=== PATIENT | male | born 1960 | race Caucasian/White ===

== ENCOUNTER 2018-12-12 04:32 | Inpatient (IN) | payer MEDICAID, OTHER ==
[2018-12-12] VITALS (12 sets, daily range): BP systolic 96–135; BP diastolic 49–57; PULSE 74–92; RESP 15–22; Ht 160 cm; Wt 60.0 kg
[~2018-12-12] VITALS: Ht 160 cm; Wt 60.0 kg
[2018-12-12] MEDS ORDERED: SOD CHLORIDE 0.9% 500 ML IV STA (04:50)
[2018-12-12] MEDS ORDERED: OCTREOTIDE 500 MCG in SOD CHLORIDE 0.9% 49 ML IV STA (04:50)
[2018-12-12] MEDS ORDERED: OCTREOTIDE 50 MCG in SOD CHLORIDE 0.9% 25 ML IVPB STA (04:50)
[2018-12-12] MEDS ORDERED: CEFTRIAXONE 1 GM/50 ML (PMX) 50 ML IVPB STA (04:50)
[2018-12-12] MEDS ORDERED: PANTOPRAZOLE IV 80 MG in SOD CHLORIDE 0.9% 100 ML IVPB STA (04:50)
[2018-12-12] MEDS ORDERED: PANTOPRAZOLE IV 80 MG in SOD CHLORIDE 0.9% 100 ML IV STA (04:50)
[2018-12-12] MEDS ORDERED: ONDANSETRON 4 MG INJ IV PRN ×2 (05:30→12:30)
[2018-12-12] MEDS ORDERED: ACETAMINOPHEN 325 MG TAB PO PRN (05:30)
[2018-12-12] MEDS ORDERED: PANTOPRAZOLE IV 80 MG in SOD CHLORIDE 0.9% 100 ML IV SCH (05:30)
[2018-12-12] MEDS ORDERED: PHYTONADIONE 10 MG in DEXTROSE 5% 50 ML IVPB ONE (05:30)
[2018-12-12] MEDS ORDERED: LOSA50TA14 ORAL (07:04)
[2018-12-12] MEDS ORDERED: ERGO500013 ORAL (07:04)
--- NOTE | 2018-12-12 07:32 | HP ---
Date/Time of Note Date/Time of Note DATE: 12/12/18 TIME: 07:31 Assessment/Plan VTE Prophylaxis SCD applied (from Nsg): Yes Pharmacological prophylaxis: NA/contraindicated Pharm contraindication: low risk/ambulating Lines/Catheters IV Catheter Type (from Nrsg): Saline Lock Assessment/Plan Hospital Course This is a 58-year-old male being admitted to the telemetry floor for: #1 acute GI bleed: Likely secondary to underlying liver disease. Hematemesis, he also reports melena. We will put the patient on Protonix drip, Sandostatin drip. He has been ordered 1 unit of PRBC in the emergency department. I will also order vitamin K given his coagulopathy along with fresh frozen plasma and 2 units of platelets, 2 units ffp, and vitamin K. We will insert an NG tube. Keep the patient n.p.o. except meds will consult GI for likely endoscopy/colonoscopy. #2 hepatitis versus cirrhosis: Patient has a history of liver disease but he does not know what exact diagnosis. Patient does have transaminitis with hyperbilirubinemia. Will obtain right upper quadrant ultrasound. CT then pelvis is pending. Will check hepatitis panel. Consult GI #3 history of heavy alcohol use: Patient reports sobriety over the last year. Will check an ethanol level. #4 Normocytic anemia: Secondary to underlying GI bleed. Will check iron stores. CBC every 6 hours. 1 unit PRBC has been ordered. #5 supratherapeutic INR with coagulopathy: Secondary likely to underlying liver disease secondary to previous alcohol use. Will order vitamin K. Daily INR, 2 units ffp #6 leukocytosis: Likely reactive. No signs of infection. Will monitor closely for any signs of fevers/infection. #7 thrombocytopenia: Likely secondary to underlying liver disease. Will check right upper quadrant ultrasound, hepatitis panel. Will transfuse 2 units of platelets. #8 metabolic acidosis: Likely secondary to acute GI bleed, anemia. Monitor closely. #9 DVT GI prophylaxis: SCDs, Protonix drip Further treatment strategy will be implemented as per the clinical course. Result Diagram: 12/12/18 0450 12/12/18 0456 Results 24hrs Laboratory Tests Test 12/12/18 04:50 12/12/18 04:56 White Blood Count 19.2 H Red Blood Count 2.24 L Hemoglobin 7.3 L Hematocrit 21.8 L Mean Corpuscular Volume 97.3 Mean Corpuscular Hemoglobin 32.6 Mean Corpuscular Hemoglobin Concent 33.5 Red Cell Distribution Width 17.2 H Platelet Count 73 L Mean Platelet Volume 12.6 H Immature Granulocytes % 1.000 H Neutrophils % 64.1 Lymphocytes % 24.4 Monocytes % 9.5 Eosinophils % 0.6 Basophils % 0.4 Nucleated Red Blood Cells % 0.0 Immature Granulocytes # 0.200 H Neutrophils # 12.3 H Lymphocytes # 4.7 H Monocytes # 1.8 H Eosinophils # 0.1 Basophils # 0.1 Nucleated Red Blood Cells # 0.0 Ethyl Alcohol Level < 10.0 H Hepatitis B Surface Antigen Pending Hepatitis B Core Total Antibody Pending Hepatitis C Antibody Pending Prothrombin Time 27.2 H Prothrombin Time Ratio 2.1 INR International Normalized Ratio 2.52 Activated Partial Thromboplast Time 43.8 H Sodium Level 144 Potassium Level 3.3 L Chloride Level 113 H Carbon Dioxide Level 18 L Anion Gap 13 Blood Urea Nitrogen 25 H Creatinine 0.89 Est Glomerular Filtrat Rate mL/min > 60 Glucose Level 124 Calcium Level 8.4 Total Bilirubin 4.5 H Direct Bilirubin 0.00 Indirect Bilirubin 4.5 H Aspartate Amino Transf (AST/SGOT) 55 H Alanine Aminotransferase (ALT/SGPT) 40 Alkaline Phosphatase 85 Troponin I 0.072 Total Protein 5.8 L Albumin 2.7 L Globulin 3.10 Albumin/Globulin Ratio 0.87 HPI/ROS Admit Date/Time Admit Date/Time Hx of Present Illness Complaint: Hematemesis x1 day, melena This is a 58-year-old male with a past history of heavy alcohol use who presents to the emergency department with bright red blood hematemesis as well as melena. Patient reports that he started having bright red blood vomiting as well as melena yesterday. He had multiple episodes of vomiting of bright red blood. He also reports that his told him that his skin looked yellow and eyes look yellow as well. He denies any recent history of alcohol use he states the last time he used it was one year ago. Allergies: NKDA Medications: Losartan ROS Const: As per HPI Eyes : No pain discharge or redness or change in visual acuity ENT: No pain, sore throat, congestion, congestion, dysphagia or discharge Respiratory: No shortness of breath, cough, sputum, wheezing, or pleuritic pain Cardiovascular: No chest pain, palpitation, PND, or edema GI : As per HPI Genitourinary: No dysuria, hematuria, flank pain , discharge or CVA tenderness Musculoskeletal: No joint pain, back pain, neck pain, restricted range of motion in neck or joints Skin: No rash, bruising or hives Neuro: No headache, dizziness, syncope, seizure, focal weakness Endocrine: No polyuria, polydipsia, temperature intolerance Psych: No hallucination, depression, anxiety or suicidal ideation PMH/Family/Social Past Medical History History of heavy alcohol use sober for 1 year, hypertension, liver disease Medications Current Medications Pantoprazole 80 mg/Sodium Chloride 100 ml @ 10 mls/hr ONCE STAT IV Last administered on 12/12/18at 06:11; Admin Dose 10 MLS/HR; Start 12/12/18 at 04:50; Stop 12/12/18 at 14:49 Octreotide Acetate 500 mcg/ Sodium Chloride 50 ml @ 5 mls/hr ONCE STAT IV Last administered on 12/12/18at 06:12; Admin Dose 5 MLS/HR; Start 12/12/18 at 04:50; Stop 12/12/18 at 14:49 Ondansetron HCl (Zofran Inj) 4 mg ER BRIDGE PRN IV NAUSEA/VOMITING Last administered on 12/12/18at 06:02; Admin Dose 4 MG; Start 12/12/18 at 05:30; Stop 12/13/18 at 05:29 Acetaminophen (Tylenol Tab) 650 mg ER BRIDGE PRN PO .MILD PAIN 1-3 OR TEMP; Start 12/12/18 at 05:30; Stop 12/13/18 at 05:29 Pantoprazole 80 mg/Sodium Chloride 100 ml @ 10 mls/hr Q10H IV ; Start 12/12/18 at 05:30 Octreotide Acetate 1 mg/ Dextrose 100 ml @ 5 mls/hr Q20H IV ; Start 12/12/18 at 05:30 Coded Allergies: No Known Drug Allergies (Verified Allergy, Unknown, 12/12/18) Past Surgical History Past Surgical Hx: no surgical history Family History Significant Family History: no pertinent family hx Social History Alcohol Use: sober (Last drink 1 year ago) Smoking Status: Never smoker Drug Use: none Exam/Review of Systems Vital Signs Vitals Vital Signs Date Temp Pulse Resp B/P (MAP) Pulse Ox O2 O2 Flow FiO2 Time Delivery Rate 12/12/18 88 20 104/53 99 Room Air 07:00 (70) 12/12/18 98.9 04:50 Exam Exam General: Patient is currently lying in bed, he recently vomited bright red blood in the emergency department HEENT: Atraumatic, normocephalic. The pupils are equal, round and reactive. Scleral icterus extraocular motor are intact, blood in the oropharynx, poor dentition Neck: Supple with full range of motion. No rigidity or meningismus Chest: Nontender Lungs: Clear to auscultation bilaterally no crackles rales or wheezing Heart: Normal S1-S2, Regular rhythm and rate. No murmur, S3, or S4 Abdomen: Soft , nontender, nondistended , bowel sounds are present. No guarding no rebound tenderness , nontender right upper quadrant, no overt organomegaly appreciated on exam Extremities: Normal to inspection, no edema no cyanosis Skin: Jaundice Neurologic: Normal mental status, speech normal, cranial nerves II through XII are intact, motor and sensory are intact, no focal weakness SONNY SILVERIO Dec 12, 2018 07:32
--- NOTE | 2018-12-12 11:22 | CONS ---
DATE OF ADMISSION: 12/12/2018 DATE OF CONSULTATION: 12/12/[address] Silverio: Thank you for asking me to see Mr. Garcia in GI consultation. HISTORY OF PRESENT ILLNESS: The patient, as you know, is a 58-year-old male who apparently has been vomiting blood for the past 24 hours. He had a small amount of vomiting blood this morning. He has history of chronic liver disease, probably due to chronic alcoholism and he also passing catalina enic stool. He has no history of ulcer disease and has not been taking any nonsteroidal anti-inflammatory drugs. No prior history of GI bleeding. No prior history of any surgery. MEDICATIONS: Prior to admission includes: Losartan. REVIEW OF SYSTEM: Positive for hypertension. PHYSICAL EXAMINATION: GENERAL: The patient is a 58-year-old male who at this time is pretty alert. He is well bu ilt. He does seem to have jaundice. CARDIOVASCULAR: Normal heart sounds. RESPIRATORY: Normal breath sounds. ABDOMEN: Shows soft abdomen with no palpable masses, no tenderness, no distention. LABORATORY WORKUP: WBC count 11,900, hemoglobin of 7.3, yesterday it dropped down to 6.3 today. Kat telet count 33,000. He was given 2 units of platelet pheresis. Coagulation prothrombin time is 27.2. The total bilirubin is 4.5, AST 55, ALT 40, alkaline phosphata se 85, potassium 3.3. The CAT scan of the abdomen shows evidence of small bowel and colonic wall thi ckening with mesenteric haziness suggesting a nonspecific enterocolitis, mild peripancreatic strandin g, cirrhosis and splenomegaly, gallbladder shows 0.6 cm gallstone. The ultrasound shows a large gallstone. Found bile duct 6.1 mm. CLINICAL IMPRESSION: 1. The patient presenting with history of upper gastrointestinal bleeding, rule out esophageal varic es, peptic ulcer disease, gastritis. 2. History of cirrhosis. 3. Thrombocytopenia prothrombin, secondary to liver disease. 4. Hypertension. PLAN: 1. Recommend to continue Protonix drip, Sandostatin drip. Recommend 2 units of fresh frozen plasma. 2. Transfuse as planned. 3. Recommend upper endoscopy, put a nasogastric tube and keep it for low suction. Once again, doctor, thank you for this consultation. Dictated By: CLIFFORD ANDERSON/JUANA Conf#: [id number] [facility]#: [id number] CC: SONNY SILVERIO MD;*End*
[2018-12-12] MEDS ORDERED: PROPOFOL 20 ML ONE (12:17)
[2018-12-12] MEDS ORDERED: LIDOCAINE 2% (SDV) 5 ML INJ ONE (12:17)
--- NOTE | 2018-12-12 12:23 | PREAC ---
Date/Time of Note Date/Time of Note DATE: 12/12/18 TIME: 12:21 Anesthesia Eval and Record Evaluation Time Pre-Procedure Interview DATE: 12/12/18 TIME: 12:21 Age 58 Sex male NPO: 8 hrs Preoperative diagnosis upper gi bleed Planned procedure EGD Past Medical History Past Medical History: Includes Cardio: HTN Hepatic: Other (liver problems;jaundiced) Heme: Anemia Surgery & Anesthesia Issues No known issue Meds Anticoagulation: No Beta Shahana within 24 hr: No Reason Beta Shahana not given: Pt. not on B-Shahana Reported Medications Losartan Potassium* (Losartan Potassium*) 50 Mg Tablet, 1 TAB ORAL DAILY 12/12/18 Ergocalciferol (Vitamin D2) (VITAMIN D2) 50,000 Unit Capsule, 1 CAP ORAL weekly 12/12/18 Current Medications Pantoprazole 80 mg/Sodium Chloride 100 ml @ 10 mls/hr ONCE STAT IV Last administered on 12/12/18at 06:11; Admin Dose 10 MLS/HR; Start 12/12/18 at 04:50; Stop 12/12/18 at 14:49 Octreotide Acetate 500 mcg/ Sodium Chloride 50 ml @ 5 mls/hr ONCE STAT IV Last administered on 12/12/18at 06:12; Admin Dose 5 MLS/HR; Start 12/12/18 at 04:50; Stop 12/12/18 at 14:49 Ondansetron HCl (Zofran Inj) 4 mg ER BRIDGE PRN IV NAUSEA/VOMITING Last administered on 12/12/18at 06:02; Admin Dose 4 MG; Start 12/12/18 at 05:30; Stop 12/13/18 at 05:29 Acetaminophen (Tylenol Tab) 650 mg ER BRIDGE PRN PO .MILD PAIN 1-3 OR TEMP; Start 12/12/18 at 05:30; Stop 12/13/18 at 05:29 Pantoprazole 80 mg/Sodium Chloride 100 ml @ 10 mls/hr Q10H IV ; Start 12/12/18 at 05:30 Octreotide Acetate 1 mg/ Dextrose 100 ml @ 5 mls/hr Q20H IV ; Start 12/12/18 at 05:30 Meds reviewed: Yes Allergies Coded Allergies: No Known Drug Allergies (Verified Allergy, Unknown, 12/12/18) Allergies Reviewed: Yes Labs/Studies Labs Reviewed: Reviewed by anesthesiologist Result Diagram: 12/12/18813 11/15/19 0456 Laboratory Tests 12/12/18 04:56 12/12/18 08:14 Blood Bank Test 12/12/18 04:56 Antibody Screen NEGATIVE Blood Product Summary Counts Blood Type O POSITIVE Crossmatch Red Blood Cells test: N/A (Linear atelectasis and/or scarring is noted within the left lung base) Studies: CXR (Linear atelectasis and/or scarring is noted within the left lung base) Pre-procedure Exam Last vitals Vital Signs Date Temp Pulse Resp B/P (MAP) Pulse Ox O2 O2 Flow FiO2 Time Delivery Rate 12/12/18 98.8 81 18 101/54 100 11:39 (70) 12/12/18 Room Air 07:00 Airway: Adequate mouth opening, Adequate thyromental dist Mallampati: Mallampati II Teeth: Abnormal (teeth in extremely poor condition; multiple broken teeth) Lung: Normal Heart: Normal ASA Physical Status ASA physical status: 4 Emergency: E Planned Anesthetic General/MAC: MAC Pre-operative Attestations Prior to commencing anesthesia and surgery, the patient was re-evaluated, there was verification of: *The patient's identity *The results of appropriate recent lab work and preoperative vital signs *The above evaluation not changing prior to induction *Anesthetic plan, risk benefits, alternative and complications discussed with patient/family; questions answered; patient/family understands, accepts and wishes to proceed. RAVIN BARRERA Dec 12, 2018 12:23
[2018-12-12] MEDS ORDERED: ACETAMINOPHEN 500 MG TAB PO PRN (12:30)
[2018-12-12] MEDS ORDERED: ALBUTEROL 0.083% (NEB) 2.5 MG/3 ML AMP HHN PRN (12:30)
[2018-12-12] MEDS ORDERED: DIPHENHYDRAMINE 50 MG INJ IV PRN (12:30)
[2018-12-12] MEDS ORDERED: LABETALOL HCL 20MG INJ IV PRN (12:30)
[2018-12-12] MEDS ORDERED: FENTAnyl 50 MCG/ML VIAL IV PRN (12:30)
--- NOTE | 2018-12-12 13:56 | PAC ---
Date/Time of Note Date/Time of Note DATE: 12/12/18 TIME: 13:56 Post-Anesthesia Notes Post-Anesthesia Note Last documented vital signs Vital Signs Date Temp Pulse Resp B/P (MAP) Pulse Ox O2 O2 Flow FiO2 Time Delivery Rate 12/12/18 17 117/54 100 Room Air 13:17 (75) 12/12/18 2.0 13:07 12/12/18 98.6 84 12:52 Activity: WNL Respiratory function: WNL Cardiovascular function: WNL Mental status: Baseline Pain reasonably controlled: Yes Hydration appropriate: Yes Nausea/Vomiting absent: Yes RAVIN BARRERA Dec 12, 2018 13:56
[2018-12-12] MEDS ORDERED: POTASSIUM CHLORIDE 100 ML IVPB ONE (16:00)
--- NOTE | 2018-12-12 16:05 | PN ---
Date/Time of Note Date/Time of Note DATE: 12/12/18 TIME: 15:52 Assessment/Plan VTE Prophylaxis Risk score (from [facility])>0 risk: 3 SCD applied (from [facility]): Yes Pharmacological prophylaxis: other Pharm contraindication: bleeding Lines/Catheters IV Catheter Type (from [place]): Peripheral IV Urinary Cath still in place: No Assessment/Plan Assessment/Plan 1. Acute upper GI bleeding, s/p EGD 12/12/2018 with severe gastritis, protonix BID 2. Anemia from acute GI loss, s/o 1 unit PRBC transfusion, follow up with H/H 3. Alcoholism with alcoholic liver cirrhosis, quitted ETOH in 01/2018 4. Thrombocytopenia, consider liver cirrhosis related 5. Leukocytosis, likely stress related, follow up with WBC without antibiotics 6. DVT prophylaxis: SCDs Result Diagram: 12/12/18 0814 12/12/18 0456 Results 24hrs Laboratory Tests Test 12/12/18 04:50 12/12/18 04:56 12/12/18 08:14 12/12/18 15:02 White Blood Count 19.2 H 11.9 #H Pending Red Blood Count 2.24 L 1.97 L Pending Hemoglobin 7.3 L 6.3 *L Pending Hematocrit 21.8 L 18.8 L Pending Mean Corpuscular 97.3 95.4 Pending Volume Mean Corpuscular 32.6 32.0 Pending Hemoglobin Mean Corpuscular 33.5 33.5 Pending Hemoglobin Concent Red Cell 17.2 H 17.3 H Pending Distribution Width Platelet Count 73 L 33 #L Pending Mean Platelet Volume 12.6 H Pending Immature 1.000 H 0.800 H Granulocytes % Neutrophils % 64.1 Lymphocytes % 24.4 Monocytes % 9.5 Eosinophils % 0.6 Basophils % 0.4 Nucleated Red Blood 0.0 0.0 Cells % Immature 0.200 H 0.090 H Granulocytes # Neutrophils # 12.3 H Lymphocytes # 4.7 H Monocytes # 1.8 H Eosinophils # 0.1 Basophils # 0.1 Nucleated Red Blood 0.0 Cells # Ethyl Alcohol Level < 10.0 H Hepatitis B Surface NEGATIVE Antigen Hepatitis B Surface NEGATIVE Antibody Hepatitis B Core NEGATIVE Total Antibody Hepatitis C Antibody NEGATIVE Prothrombin Time 27.2 H Prothrombin Time 2.1 Ratio INR International 2.52 Normalized Ratio Activated 43.8 H Partial Thromboplast Time Sodium Level 144 Potassium Level 3.3 L Chloride Level 113 H Carbon Dioxide Level 18 L Anion Gap 13 Blood Urea Nitrogen 25 H Creatinine 0.89 Est Glomerular > 60 Filtrat Rate mL/min Glucose Level 124 Calcium Level 8.4 Total Bilirubin 4.5 H Direct Bilirubin 0.00 Indirect Bilirubin 4.5 H Aspartate Amino 55 H Transf (AST/SGOT) Alanine 40 Aminotransferase (AL T/SGPT) Alkaline Phosphatase 85 Troponin I 0.072 Total Protein 5.8 L Albumin 2.7 L Globulin 3.10 Albumin/Globulin 0.87 Ratio Segmented 87 H Neutrophils % (Manual) Band Neutrophils % 4 (Manual) Lymphocytes % 2 L (Manual) Monocytes % (Manual) 6 Myelocytes % 1 H (Manual) Neutrophils # 10.4 H (Manual) Band Neutrophils # 0.4 Lymphocytes (Manual) 0.2 L Monocytes # (Manual) 0.7 Myelocytes # 0.1 H Pathologist YES Review (Hematology) Platelet Estimate DECREASED Giant Platelets 1 H Platelet Morphology @See below Comment Polychromasia 1+ Anisocytosis 1+ Macrocytosis 1+ Subjective 24 Hr Interval Summary Free Text/Dictation no nausea or vomiting, no abdominal pain Exam/Review of Systems Exam Vitals Vital Signs Date Temp Pulse Resp B/P (MAP) Pulse Ox O2 O2 Flow FiO2 Time Delivery Rate 12/12/18 98.3 81 18 96/54 (68) 100 15:30 12/12/18 Room Air 13:17 12/12/18 2.0 13:07 Constitutional: alert, oriented, well developed Psych: no complaints, nl mood/affect Head: normocephalic, atraumatic Eyes: nl conjunctiva, EOMI, nl lids ENMT: nl external ears & nose, nl lips & teeth, nl nasal mucosa & septum Neck: supple, non-tender Respiratory: clear to auscultation, normal air movement; No congested cough, No crackles/rales, No diminished breath sounds, No intercostal retraction, No labored breathing, No respirations, No tactile fremitus, No wheezing, No other Cardiovascular: regular rate and rhythm, nl pulses; No bruits, No diastolic murmur, No edema, No gallop, No irregular rhythm, No jugular venous distention (JVD), No murmurs/extra sounds, No rub, No systolic murmur, No S3, No S4, No other Gastrointestinal: soft, nl liver, spleen, non-tender Musculoskeletal: nl extremities to inspection Extremities: normal pulses; No calf tenderness, No cyanosis, No clubbing, No edema, No pitting pedal edema, No palpable cord, No tenderness, No other 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: ENVIR[employer]MENTAL STUDIES [employer] MEMBER II-XII intact, nl mental status, nl speech, nl strength Results Results 24hrs Laboratory Tests Test 12/12/18 04:50 12/12/18 04:56 12/12/18 08:14 12/12/18 15:02 White Blood Count 19.2 H 11.9 #H Pending Red Blood Count 2.24 L 1.97 L Pending Hemoglobin 7.3 L 6.3 *L Pending Hematocrit 21.8 L 18.8 L Pending Mean Corpuscular 97.3 95.4 Pending Volume Mean Corpuscular 32.6 32.0 Pending Hemoglobin Mean Corpuscular 33.5 33.5 Pending Hemoglobin Concent Red Cell 17.2 H 17.3 H Pending Distribution Width Platelet Count 73 L 33 #L Pending Mean Platelet Volume 12.6 H Pending Immature 1.000 H 0.800 H Granulocytes % Neutrophils % 64.1 Lymphocytes % 24.4 Monocytes % 9.5 Eosinophils % 0.6 Basophils % 0.4 Nucleated Red Blood 0.0 0.0 Cells % Immature 0.200 H 0.090 H Granulocytes # Neutrophils # 12.3 H Lymphocytes # 4.7 H Monocytes # 1.8 H Eosinophils # 0.1 Basophils # 0.1 Nucleated Red Blood 0.0 Cells # Ethyl Alcohol Level < 10.0 H Hepatitis B Surface NEGATIVE Antigen Hepatitis B Surface NEGATIVE Antibody Hepatitis B Core NEGATIVE Total Antibody Hepatitis C Antibody NEGATIVE Prothrombin Time 27.2 H Prothrombin Time 2.1 Ratio INR International 2.52 Normalized Ratio Activated 43.8 H Partial Thromboplast Time Sodium Level 144 Potassium Level 3.3 L Chloride Level 113 H Carbon Dioxide Level 18 L Anion Gap 13 Blood Urea Nitrogen 25 H Creatinine 0.89 Est Glomerular > 60 Filtrat Rate mL/min Glucose Level 124 Calcium Level 8.4 Total Bilirubin 4.5 H Direct Bilirubin 0.00 Indirect Bilirubin 4.5 H Aspartate Amino 55 H Transf (AST/SGOT) Alanine 40 Aminotransferase (AL T/SGPT) Alkaline Phosphatase 85 Troponin I 0.072 Total Protein 5.8 L Albumin 2.7 L Globulin 3.10 Albumin/Globulin 0.87 Ratio Segmented 87 H Neutrophils % (Manual) Band Neutrophils % 4 (Manual) Lymphocytes % 2 L (Manual) Monocytes % (Manual) 6 Myelocytes % 1 H (Manual) Neutrophils # 10.4 H (Manual) Band Neutrophils # 0.4 Lymphocytes (Manual) 0.2 L Monocytes # (Manual) 0.7 Myelocytes # 0.1 H Pathologist YES Review (Hematology) Platelet Estimate DECREASED Giant Platelets 1 H Platelet Morphology @See below Comment Polychromasia 1+ Anisocytosis 1+ Macrocytosis 1+ Medications Medication Current Medications Ondansetron HCl (Zofran Inj) 4 mg ER BRIDGE PRN IV NAUSEA/VOMITING Last administered on 12/12/18at 06:02; Admin Dose 4 MG; Start 12/12/18 at 05:30; Stop 12/13/18 at 05:29 Acetaminophen (Tylenol Tab) 650 mg ER BRIDGE PRN PO .MILD PAIN 1-3 OR TEMP; Start 12/12/18 at 05:30; Stop 12/13/18 at 05:29 Pantoprazole 80 mg/Sodium Chloride 100 ml @ 10 mls/hr Q10H IV ; Start 12/12/18 at 05:30 Octreotide Acetate 1 mg/ Dextrose 100 ml @ 5 mls/hr Q20H IV ; Start 12/12/18 at 05:30 Fentanyl (Sublimaze) 25 mcg PACU ORDER PRN IV MILD PAIN 1-3; Start 12/12/18 at 12:30; Stop 12/12/18 at 17:00 Ondansetron HCl (Zofran Inj) 4 mg PACU ORDER PRN IV NAUSEA/VOMITING; Start 12/12/18 at 12:30; Stop 12/12/18 at 17:00 Labetalol HCl (Labetalol) 5 mg PACU ORDER PRN IV HIGH BLOOD PRESSURE; Start 12/12/18 at 12:30; Stop 12/12/18 at 17:00 Albuterol (Proventil 0.083% (Neb)) 2.5 mg PACU ORDER PRN HHN .WHEEZING; Start 12/12/18 at 12:30; Stop 12/12/18 at 17:00 Diphenhydramine HCl (Benadryl) 25 mg PACU ORDER PRN IV .PRURITUS; Start 12/12/18 at 12:30; Stop 12/12/18 at 17:00 Acetaminophen (Tylenol Tab) 1,000 mg ONCE PRN PO pain; Start 12/12/18 at 12:30; Stop 12/14/18 at 12:29 MARIELENA PASCUAL MD Dec 12, 2018 16:02
[2018-12-12] MEDS: SUCRALFATE 1 GM TAB PO SCH ×2 (17:00→21:00)
[2018-12-12] MEDS: PANTOPRAZOLE (EC) 40 MG TAB PO SCH (18:00)
[2018-12-13 04:00] VITALS: BP 100/52; PULSE 67; RESP 14
[2018-12-13 07:39] VITALS: BP 98/51; PULSE 59; RESP 16
[2018-12-13] MEDS: SUCRALFATE 1 GM TAB PO SCH ×4 (08:41→21:13)
[2018-12-13] MEDS: PANTOPRAZOLE (EC) 40 MG TAB PO SCH ×2 (08:41→16:45)
[2018-12-13 11:17] VITALS: BP 104/55; PULSE 57; RESP 16
[2018-12-13 15:16] VITALS: BP 104/51; PULSE 57; RESP 17
--- NOTE | 2018-12-13 15:40 | PN ---
Date/Time of Note Date/Time of Note DATE: 12/13/18 TIME: 15:35 Assessment/Plan VTE Prophylaxis Risk score (from [facility] [place])>0 risk: 3 SCD applied (from [facility] [place]): Yes Pharmacological prophylaxis: other Pharm contraindication: bleeding Lines/Catheters IV Catheter Type (from [facility]): Peripheral IV Urinary Cath still in place: No Assessment/Plan Assessment/Plan 1. Acute upper GI bleeding, s/p EGD 12/12/2018 with severe gastritis, start diet, protonix, carafate 2. Anemia from acute GI loss, s/o 3 unit PRBC transfusion, follow up with H/H 3. Alcoholism with alcoholic liver cirrhosis, quitted ETOH in 01/2018 4. Thrombocytopenia, consider liver cirrhosis related 5. Leukocytosis, likely stress related, follow up with WBC without antibiotics 6. DVT prophylaxis: SCDs Result Diagram: 12/13/18 0815 12/13/18 0725 Results 24hrs Laboratory Tests Test 12/12/18 21:59 12/13/18 04:00 12/13/18 07:25 12/13/18 08:15 White Blood Count 5.7 # 3.9 #L Red Blood Count 1.83 L 2.11 L Hemoglobin 6.0 *L 6.8 *L Hematocrit 17.7 L 20.1 L Mean Corpuscular 96.7 95.3 Volume Mean Corpuscular 32.8 32.2 Hemoglobin Mean Corpuscular 33.9 33.8 Hemoglobin Concent Red Cell 17.2 H 16.7 H Distribution Width Platelet Count 39 L 46 L Mean Platelet 12.6 H 12.5 H Volume Immature 0.700 H 0.800 H Granulocytes % Neutrophils % 71.3 66.1 Lymphocytes % 19.7 22.7 Monocytes % 7.5 8.5 Eosinophils % 0.5 1.6 Basophils % 0.3 0.3 Nucleated Red 0.0 0.0 Blood Cells % Immature 0.040 H 0.030 Granulocytes # Neutrophils # 4.1 2.6 Lymphocytes # 1.1 0.9 Monocytes # 0.4 0.3 Eosinophils # 0.0 0.1 Basophils # 0.0 0.0 Nucleated Red 0.0 0.0 Blood Cells # Urine Opiates NEGATIVE Screen Urine Barbiturates NEGATIVE Urine Amphetamines NEGATIVE Screen Urine NEGATIVE Benzodiazepines Screen Urine Cocaine NEGATIVE Screen Urine Cannabinoids Negative Prothrombin Time 22.0 H Prothrombin Time 1.7 Ratio INR International 1.91 Normalized Ratio Activated 38.[address] Time Sodium Level 147 H Potassium Level 3.8 Chloride Level 118 H Carbon Dioxide 26 Level Anion Gap 3 #L Blood Urea 25 H Nitrogen Creatinine 0.92 Est Glomerular > 60 Filtrat Rate mL/min Glucose Level 94 Calcium Level 8.2 L Segmented 73 Neutrophils % (Manual) Band Neutrophils % 7 H (Manual) Lymphocytes % 15 (Manual) Monocytes % 5 (Manual) Neutrophils # 2.9 (Manual) Band Neutrophils # 0.2 Lymphocytes 0.5 L (Manual) Monocytes # 0.1 L (Manual) Pathologist YES Review (Hematology ) Platelet Estimate SIG DECREASED Giant Platelets 3 H Polychromasia 1+ Poikilocytosis 1+ Anisocytosis 1+ Subjective 24 Hr Interval Summary Free Text/Dictation no abdominal pain no nausea or vomiting no BM since yesterday Exam/Review of Systems Exam Vitals Vital Signs Date Temp Pulse Resp B/P (MAP) Pulse Ox O2 O2 Flow FiO2 Time Delivery Rate 12/13/18 98.7 57 17 104/51 98 15:16 (68) 12/12/18 Room Air 13:17 12/12/18 2.0 13:07 Intake and Output 12/12/18 12/12/18 12/13/18 1515:00 23:00 07:00 OutputOutput Total 500 ml BalanceBalance -500 ml Constitutional: alert, oriented, well developed Psych: no complaints, nl mood/affect Head: normocephalic, atraumatic Eyes: nl conjunctiva, EOMI, nl lids ENMT: nl external ears & nose, nl lips & teeth, nl nasal mucosa & septum Neck: supple, non-tender Respiratory: clear to auscultation, normal air movement; No congested cough, No crackles/rales, No diminished breath sounds, No intercostal retraction, No labored breathing, No respirations, No tactile fremitus, No wheezing, No other Cardiovascular: regular rate and rhythm, nl pulses; No bruits, No diastolic murmur, No edema, No gallop, No irregular rhythm, No jugular venous distention (JVD), No murmurs/extra sounds, No rub, No systolic murmur, No S3, No S4, No other Gastrointestinal: soft, nl liver, spleen, non-tender; No ascites, No bowel sounds, No distended, No firm, No hepatomegaly, No mass, No rebound or guarding, No splenomegaly, No surgical scars, No tender, No other Musculoskeletal: nl extremities to inspection Extremities: normal pulses; No calf tenderness, No cyanosis, No clubbing, No edema, No pitting pedal edema, No palpable cord, No tenderness, No other 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5 Eosinophils % 0.5 1.6 Basophils % 0.3 0.3 Nucleated Red 0.0 0.0 Blood Cells % Immature 0.040 H 0.030 Granulocytes # Neutrophils # 4.1 2.6 Lymphocytes # 1.1 0.9 Monocytes # 0.4 0.3 Eosinophils # 0.0 0.1 Basophils # 0.0 0.0 Nucleated Red 0.0 0.0 Blood Cells # Urine Opiates NEGATIVE Screen Urine Barbiturates NEGATIVE Urine Amphetamines NEGATIVE Screen Urine NEGATIVE Benzodiazepines Screen Urine Cocaine NEGATIVE Screen Urine Cannabinoids Negative Prothrombin Time 22.0 H Prothrombin Time 1.7 Ratio INR International 1.91 Normalized Ratio Activated 38.[address] Time Sodium Level 147 H Potassium Level 3.8 Chloride Level 118 H Carbon Dioxide 26 Level Anion Gap 3 #L Blood Urea 25 H Nitrogen Creatinine 0.92 Est Glomerular > 60 Filtrat Rate mL/min Glucose Level 94 Calcium Level 8.2 L Segmented 73 Neutrophils % (Manual) Band Neutrophils % 7 H (Manual) Lymphocytes % 15 (Manual) Monocytes % 5 (Manual) Neutrophils # 2.9 (Manual) Band Neutrophils # 0.2 Lymphocytes 0.5 L (Manual) Monocytes # 0.1 L (Manual) Pathologist YES Review (Hematology ) Platelet Estimate SIG DECREASED Giant Platelets 3 H Polychromasia 1+ Poikilocytosis 1+ Anisocytosis 1+ Medications Medication Current Medications Octreotide Acetate 1 mg/ Dextrose 100 ml @ 5 mls/hr Q20H IV ; Start 12/12/18 at 05:30 Acetaminophen (Tylenol Tab) 1,000 mg ONCE PRN PO pain; Start 12/12/18 at 12:30; Stop 12/14/18 at 12:29 Pantoprazole (Protonix Tab) 40 mg BID@06,18 PO Last administered on 12/13/18at 08:41; Admin Dose 40 MG; Start 12/12/18 at 18:00 Sucralfate (Carafate) 1 gm QID PO Last administered on 12/13/18at 08:41; Admin Dose 1 GM; Start 12/12/18 at 17:00 MARIELENA PASCUAL MD Dec 13, 2018 15:40
[2018-12-13] MEDS: OCTREOTIDE 1 MG in DEXTROSE 5% 95 ML IV SCH ×2 (16:38→21:30)
[2018-12-13] MEDS ORDERED: PEG/ELECTROLYTES 4L BTL PO ONE (18:00)
[2018-12-13 19:30] VITALS: BP 125/60; PULSE 64; RESP 18
[2018-12-14] VITALS (16 sets, daily range): BP systolic 93–134; BP diastolic 39–104; PULSE 55–77; RESP 14–22
[2018-12-14] MEDS: PANTOPRAZOLE (EC) 40 MG TAB PO SCH ×2 (06:00→17:53)
--- NOTE | 2018-12-14 07:02 | PN ---
DATE: 12/13/2018 The patient is admitted with severe anemia and hematemesis. Upper endoscopy showed erosive gastritis . No varices noted. No ulcers noted; however, patient continues to have a low hemoglobin, it has be en in the range of 6.3, 7.3, 6.0. He received multiple units of transfusion. PHYSICAL EXAMINATION: GENERAL: The patient is a 58-year-old gentleman who at this time is alert. VITAL SIGNS: He is afebrile, blood pressure is 104/51. CARDIOVASCULAR: Normal heart sounds. RESPIRATORY: Normal breath sounds. ABDOMEN: Shows soft abdomen. No palpable masses, no tenderness. LABORATORY WORKUP: Hemoglobin 6.8, WBC is 3.9. The coagulation prothrombin time is 22. CLINICAL IMPRESSION: The patient presenting with history of severe anemia. Upper endoscopy showed o nly some minimal to moderate degree of gastritis. No active bleeding noted. One should rule out the possibility of colorectal neoplasm, arteriovenous malformation, etc. PLAN: At this time, recommend colonoscopy. Dictated By: CLIFFORD ANDERSON/JUANA Conf#: [id number] DID#: [id number]
[2018-12-14] MEDS: SUCRALFATE 1 GM TAB PO SCH ×4 (07:24→21:10)
--- NOTE | 2018-12-14 11:16 | PREAC ---
Date/Time of Note Date/Time of Note DATE: 12/14/18 TIME: 11:15 Anesthesia Eval and Record Evaluation Time Pre-Procedure Interview DATE: 12/14/18 TIME: 11:15 Age 58 Sex male NPO: 8 hrs Preoperative diagnosis upper GI bleed Planned procedure colonoscopy Past Medical History Past Medical History: Includes Cardio: HTN Hepatic: Alcohol abuse, Other (iver problems;jaundiced) Heme: Anemia Surgery & Anesthesia Issues No known issue Meds Anticoagulation: No Beta Shahana within 24 hr: No Reason Beta Shahana not given: Pt. not on B-Shahana Reported Medications Losartan Potassium* (Losartan Potassium*) 50 Mg Tablet, 1 TAB ORAL DAILY 12/12/18 Ergocalciferol (Vitamin D2) (VITAMIN D2) 50,000 Unit Capsule, 1 CAP ORAL weekly 12/12/18 Current Medications Octreotide Acetate 1 mg/ Dextrose 100 ml @ 5 mls/hr Q20H IV Last administered on 12/13/18at 21:30; Admin Dose 5 MLS/HR; Start 12/12/18 at 05:30 Acetaminophen (Tylenol Tab) 1,000 mg ONCE PRN PO pain; Start 12/12/18 at 12:30; Stop 12/14/18 at 12:29 Pantoprazole (Protonix Tab) 40 mg BID@06,18 PO Last administered on 12/14/18at 06:00; Admin Dose 40 MG; Start 12/12/18 at 18:00 Sucralfate (Carafate) 1 gm QID PO Last administered on 12/13/18at 21:13; Admin Dose 1 GM; Start 12/12/18 at 17:00 Meds reviewed: Yes Allergies Coded Allergies: No Known Drug Allergies (Verified Allergy, Unknown, 12/12/18) Allergies Reviewed: Yes Labs/Studies Labs Reviewed: Reviewed by anesthesiologist Result Diagram: 12/14/18 0608 12/14/18 0610 Laboratory Tests 12/14/18 06:08 12/14/18 06:10 test: N/A Pre-procedure Exam Last vitals Vital Signs Date Temp Pulse Resp B/P (MAP) Pulse Ox O2 O2 Flow FiO2 Time Delivery Rate 12/14/18 98.0 59 18 134/62 97 Room Air 11:12 (86) 12/12/18 2.0 13:07 Airway: Adequate mouth opening Mallampati: Mallampati II Teeth: Normal Lung: Normal Heart: Normal ASA Physical Status ASA physical status: 2 Emergency: None Planned Anesthetic General/MAC: MAC Pre-operative Attestations Prior to commencing anesthesia and surgery, the patient was re-evaluated, there was verification of: *The patient's identity *The results of appropriate recent lab work and preoperative vital signs *The above evaluation not changing prior to induction *Anesthetic plan, risk benefits, alternative and complications discussed with patient/family; questions answered; patient/family understands, accepts and wishes to proceed. JUANITO BATISTA Dec 14, 2018 11:16
[2018-12-14] MEDS ORDERED: PROPOFOL 40 ML ONE (11:19)
[2018-12-14] MEDS ORDERED: LIDOCAINE 100 MG SYRINGE ONE (11:19)
--- NOTE | 2018-12-14 11:37 | PAC ---
Date/Time of Note Date/Time of Note DATE: 12/14/18 TIME: 11:37 Post-Anesthesia Notes Post-Anesthesia Note Last documented vital signs Vital Signs Date Temp Pulse Resp B/P (MAP) Pulse Ox O2 O2 Flow FiO2 Time Delivery Rate 12/14/18 98.0 59 18 134/62 97 Room Air 11:12 (86) 12/12/18 2.0 13:07 Activity: WNL Respiratory function: WNL Cardiovascular function: WNL Mental status: Baseline Pain reasonably controlled: Yes Hydration appropriate: Yes Nausea/Vomiting absent: Yes JUANITO BATISTA Dec 14, 2018 11:37
--- NOTE | 2018-12-14 13:53 | PN ---
Date/Time of Note Date/Time of Note DATE: 12/14/18 TIME: 13:51 Assessment/Plan VTE Prophylaxis Risk score (from [facility] [place])>0 risk: 1 SCD applied (from [facility] [place]): Yes Pharmacological prophylaxis: other Pharm contraindication: bleeding Lines/Catheters IV C[facility]ter Type (from [facility]): Peripheral IV Urinary Cath still in place: No Assessment/Plan Assessment/Plan 1. Acute upper GI bleeding, s/p EGD 12/12/2018 with severe gastritis, start diet, protonix, carafate 2. Anemia from acute GI loss, s/p 3 unit PRBC transfusion, drop of H/H, unlikely active bleeding, follow up with H/H, iv iron 3. Alcoholism with alcoholic liver cirrhosis, quitted ETOH in 01/2018 4. Thrombocytopenia, consider liver cirrhosis related 5. Colonoscopy on 12/14/2018: hemorrhoids 6. DVT prophylaxis: SCDs Result Diagram: 12/14/18 0608 12/14/18 0610 Results 24hrs Laboratory Tests Test 12/13/18 18:09 12/14/18 06:08 12/14/18 06:10 12/14/18 11:17 Hemoglobin 8.2 #L 7.6 L Hematocrit 24.4 #L 22.2 L White Blood Count 3.0 #L Red Blood Count 2.39 L Mean Corpuscular 92.9 Volume Mean Corpuscular 31.8 Hemoglobin Mean Corpuscular 34.2 Hemoglobin Concen t Red Cell 17.3 H Distribution Width Platelet Count 33 #L Mean Platelet 12.9 H Volume Immature 0.700 H Granulocytes % Neutrophils % 60.4 Lymphocytes % 26.4 Monocytes % 9.5 Eosinophils % 2.7 Basophils % 0.3 Nucleated Red 0.7 H Blood Cells % Immature 0.020 Granulocytes # Neutrophils # 1.8 Lymphocytes # 0.8 Monocytes # 0.3 Eosinophils # 0.1 Basophils # 0.0 Nucleated Red 0.0 Blood Cells # Sodium Level 144 Potassium Level 3.6 Chloride Level 114 H Carbon Dioxide 26 Level Anion Gap 4 L Blood Urea 17 Nitrogen Creatinine 0.92 Est Glomerular > 60 Filtrat Rate mL/min Glucose Level 90 Calcium Level 8.4 Lab Scanned BLOOD TRANSFUSIO Report N Subjective 24 Hr Interval Summary Free Text/Dictation no abdominal pain. s/p colonoscopy today Exam/Review of Systems Exam Vitals Vital Signs Date Temp Pulse Resp B/P (MAP) Pulse Ox O2 O2 Flow FiO2 Time Delivery Rate 12/14/18 98.5 55 16 118/57 96 Room Air 12:49 (77) 12/12/18 2.0 13:07 Intake and Output 12/13/18 12/13/18 12/14/18 1414:59 22:59 06:59 IntakeIntake Total 750 ml BalanceBalance 750 ml Constitutional: alert, oriented, well developed Psych: no complaints, nl mood/affect Head: normocephalic, atraumatic Eyes: nl conjunctiva, EOMI, nl lids ENMT: nl external ears & nose, nl lips & teeth, nl nasal mucosa & septum Neck: supple, non-tender Respiratory: clear to auscultation, normal air movement; No congested cough, No crackles/rales, No diminished breath sounds, No intercostal retraction, No labored breathing, No respirations, No tactile fremitus, No wheezing, No other Cardiovascular: regular rate and rhythm, nl pulses; No bruits, No diastolic murmur, No edema, No gallop, No irregular rhythm, No jugular venous distention (JVD), No murmurs/extra sounds, No rub, No systolic murmur, No S3, No S4, No other Gastrointestinal: soft, nl liver, spleen, non-tender Musculoskeletal: nl extremities to inspection Extremities: normal pulses; No calf tenderness, No cyanosis, No clubbing, No edema, No pitting pedal edema, No palpable cord, No tenderness, No other 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: 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 intact, nl mental status, nl speech, nl strength Skin: nl turgor Results Results 24hrs Laboratory Tests Test 12/13/18 18:09 12/14/18 06:08 12/14/18 06:10 12/14/18 11:17 Hemoglobin 8.2 #L 7.6 L Hematocrit 24.4 #L 22.2 L White Blood Count 3.0 #L Red Blood Count 2.39 L Mean Corpuscular 92.9 Volume Mean Corpuscular 31.8 Hemoglobin Mean Corpuscular 34.2 Hemoglobin Concen t Red Cell 17.3 H Distribution Width Platelet Count 33 #L Mean Platelet 12.9 H Volume Immature 0.700 H Granulocytes % Neutrophils % 60.4 Lymphocytes % 26.4 Monocytes % 9.5 Eosinophils % 2.7 Basophils % 0.3 Nucleated Red 0.7 H Blood Cells % Immature 0.020 Granulocytes # Neutrophils # 1.8 Lymphocytes # 0.8 Monocytes # 0.3 Eosinophils # 0.1 Basophils # 0.0 Nucleated Red 0.0 Blood Cells # Sodium Level 144 Potassium Level 3.6 Chloride Level 114 H Carbon Dioxide 26 Level Anion Gap 4 L Blood Urea 17 Nitrogen Creatinine 0.92 Est Glomerular > 60 Filtrat Rate mL/min Glucose Level 90 Calcium Level 8.4 Lab Scanned BLOOD TRANSFUSIO Report N Medications Medication Current Medications Octreotide Acetate 1 mg/ Dextrose 100 ml @ 5 mls/hr Q20H IV Last administered on 12/13/18at 21:30; Admin Dose 5 MLS/HR; Start 12/12/18 at 05:30 Pantoprazole (Protonix Tab) 40 mg BID@06,18 PO Last administered on 12/14/18at 06:00; Admin Dose 40 MG; Start 12/12/18 at 18:00 Sucralfate (Carafate) 1 gm QID PO Last administered on 12/13/18at 21:13; Admin Dose 1 GM; Start 12/12/18 at 17:00 Ferric Sodium Gluconate Complex 125 mg/Sodium Chloride 100 ml @ 100 mls/hr DAILY@1300 IVPB ; Start 12/14/18 at 15:00; Stop 12/16/18 at 13:59 MARIELENA PASCUAL MD Dec 14, 2018 13:53
[2018-12-14] MEDS: SOD FERRIC GLUC COMPLX 125 MG in SOD CHLORIDE 0.9% 100 ML IVPB SCH (15:35)
[2018-12-14] MEDS: OCTREOTIDE 1 MG in DEXTROSE 5% 95 ML IV SCH (17:53)
[2018-12-15 00:09] VITALS: BP 126/58; PULSE 59; RESP 20
[2018-12-15 03:56] VITALS: BP 115/56; PULSE 65; RESP 19
[2018-12-15] MEDS: PANTOPRAZOLE (EC) 40 MG TAB PO SCH (06:12)
[2018-12-15 07:32] VITALS: BP 124/62; PULSE 58; RESP 19
[2018-12-15] MEDS: SUCRALFATE 1 GM TAB PO SCH ×2 (08:48→13:30)
[2018-12-15 11:22] VITALS: BP 110/57; PULSE 66; RESP 20
[2018-12-15] MEDS: SOD FERRIC GLUC COMPLX 125 MG in SOD CHLORIDE 0.9% 100 ML IVPB SCH (13:30)
[2018-12-15] MEDS: OCTREOTIDE 1 MG in DEXTROSE 5% 95 ML IV SCH (14:00)
[2018-12-15 15:03] VITALS: BP 111/65; PULSE 68; RESP 19
[2018-12-15] MEDS ORDERED: SUCR1TAB35 PO (15:21)
[2018-12-15] MEDS ORDERED: PANT40TA4 PO (15:21)
[2018-12-15] MEDS ORDERED: FER325 PO (15:21)
--- NOTE | 2018-12-15 15:29 | DS ---
Date/Time of Note Date/Time of Note DATE: 12/15/18 TIME: 15:21 Discharge Summary Admission/Discharge Info Admit Date/Time Dec 12, 2018 at 05:26 Discharge Date/Time Discharge Diagnosis 1. Acute upper GI bleeding, s/p EGD 12/12/2018 with severe gastritis, start diet, protonix, carafate 2. Anemia from acute GI loss, s/p 3 unit PRBC transfusion, oral iron supplement, follow up with PCP 3. Alcoholism with alcoholic liver cirrhosis, quitted ETOH in 01/2018 4. Pancytopenia due to liver cirrhosis, follow up with PCP 5. Colonoscopy on 12/14/2018: hemorrhoids Patient Condition: Stable Hospital Course This is a 58-year-old male with a past history of heavy alcohol use who presents to the emergency department with bright red blood hematemesis as well as melena. Patient reports that he started having bright red blood vomiting as well as melena yesterday. He had multiple episodes of vomiting of bright red blood. He also reports that his told him that his skin looked yellow and eyes look yellow as well. He denies any recent history of alcohol use he states the last time he used it was one year ago. For upper GI bleeding, patient got EGD done on 12/12/2018 that revealed severe erosive gastritis. Patient is getting protonix and carafate. No sign of active bleeding. H/H were down to 6.3/18/.8 that he got two units PRBC transfusion. H/H are stable at 7.7/23.1. Patient will continue on oral iron supplement and follow up with PCP. Patient has history of alcoholism and CT scan indicates liver cirrhosis and splenomegaly. Patient had pancytopenia from this. PLT is 38,000, WBC 3,100. Follow up with PCP. US reported as Large gallstone with gallbladder wall thickening. Clinically no evidence of cholecystitis. Home Meds Active Scripts Ferrous Sulfate* (Ferrous Sulfate*) 325 Mg Tabec, 325 MG PO BID for 30 Days, TAB Prov:MARIELENA PASCUAL MD 12/15/18 Sucralfate (Carafate) 1 Gm Tablet, 1 GM PO QID for 30 Days, TAB Prov:MARIELENA PASCUAL MD 12/15/18 Pantoprazole* (Pantoprazole*) 40 Mg Tablet.dr, 40 MG PO BID@ for 30 Days Prov:MARIELENA PASCUAL MD 12/15/18 Reported Medications Ergocalciferol (Vitamin D2) (VITAMIN D2) 50,000 Unit Capsule, 1 CAP ORAL weekly 12/12/18 Discontinued Reported Medications Losartan Potassium* (Losartan Potassium*) 50 Mg Tablet, 1 TAB ORAL DAILY 12/12/18 Follow-up Plan PCP and GI one week Primary Care Provider Care Physician No Primary Pending Labs Laboratory Tests Test 12/15/18 05:46 12/15/18 11:52 White Blood Count 2.8 10^3/ul (4.8-10.8) 3.1 10^3/ul (4.8-10.8) Red Blood Count 2.37 10^6/ul (4.70-6.10) 2.42 10^6/ul (4.70-6.10) Hemoglobin 7.6 g/dl (14.0-18.0) 7.7 g/dl (14.0-18.0) Hematocrit 22.4 % (42.0-52.0) 23.1 % (42.0-52.0) Mean Corpuscular Volume 94.5 fl (82.0-101.0) 95.5 fl (82.0-101.0) Mean Corpuscular 32.1 pg (29.0-33.0) 31.8 pg (29.0-33.0) Hemoglobin Mean Corpuscular 33.9 g/dl (32.0-37.0) 33.3 g/dl (32.0-37.0) Hemoglobin Concent Red Cell Distribution 17.3 % (11.5-14.5) 17.4 % (11.5-14.5) Width Platelet Count 28 10^3/UL (140-415) 38 10^3/UL (140-415) Mean Platelet Volume 12.0 fl (7.4-10.4) 12.3 fl (7.4-10.4) Immature Granulocytes % 0.700 % (0.001-0.429) 0.600 % (0.001-0.429) Neutrophils % % (39.0-77.0) 61.7 % (39.0-77.0) Segmented Neutrophils 59 % (39-77) % (Manual) Band Neutrophils % 5 % (0-4) (Manual) Lymphocytes % % (15.0-51.0) 23.2 % (15.0-51.0) Lymphocytes % (Manual) 22 % (15-51) Monocytes % % (0.0-11.0) 11.0 % (0.0-11.0) Monocytes % (Manual) 6 % (0-11) Eosinophils % % (0.0-7.0) 3.2 % (0.0-7.0) Eosinophils % (Manual) 8 % (0-7) Basophils % % (0.0-2.0) 0.3 % (0.0-2.0) Nucleated Red Blood Cells 0.0 /100WBC (0.0-0.0) 0.0 /100WBC (0.0-0.0) % Immature Granulocytes # 0.020 10^3/ul (0.0-0.031) 0.020 10^3/ul (0.0-0.031) Neutrophils # 10^3/ul (1.6-7.5) 1.9 10^3/ul (1.6-7.5) Neutrophils # (Manual) 1.7 10^3/ul (1.6-7.5) Band Neutrophils # 0.1 10^3/ul (0.0-0.6) Lymphocytes (Manual) 0.6 10^3/ul (0.8-2.9) Lymphocytes # 10^3/ul (0.8-2.9) 0.7 10^3/ul (0.8-2.9) Monocytes # 10^3/ul (0.3-0.9) 0.3 10^3/ul (0.3-0.9) Monocytes # (Manual) 0.1 10^3/ul (0.3-0.9) Eosinophils # 10^3/ul (0.0-0.5) 0.1 10^3/ul (0.0-0.5) Basophils # 10^3/ul (0.0-0.1) 0.0 10^3/ul (0.0-0.1) Nucleated Red Blood Cells 10^3/ul (0.0-0.0) 0.0 10^3/ul (0.0-0.0) # Platelet Estimate SIG DECREASED Giant Platelets 14 % (0-0) Poikilocytosis 1+ (0-0) Anisocytosis 1+ (0-0) Sodium Level 141 mmol/L (135-144) Potassium Level 3.7 mmol/L (3.5-5.1) Chloride Level 112 mmol/L (97-110) Carbon Dioxide Level 25 mmol/L (21-31) Anion Gap 4 (5-13) Blood Urea Nitrogen 13 mg/dl (7-20) Creatinine 0.92 mg/dl (0.61-1.24) Est Glomerular Filtrat > 60 mL/min (>60) Rate mL/min Glucose Level 117 mg/dl (70-220) Calcium Level 8.1 mg/dl (8.4-10.2) MARIELENA PASCUAL MD Dec 15, 2018 15:29
== END 2018-12-15 16:47 | disposition home or self-care (01) | DRG 378 ==
LOC: E/R 04:32 → TEL 05:26
PROVIDERS: ADMIT Family Medicine; ATTEND Internal Medicine
PROC: 0DJ08ZZ Inspection of Upper Intestinal Tract, Via Natural or Artificial Opening Endoscopic (ICD-10-PCS; 2018-12-12)
PROC: 30233K1 Transfusion of Nonautologous Frozen Plasma into Peripheral Vein, Percutaneous Approach (ICD-10-PCS; 2018-12-12)
PROC: 30233R1 Transfusion of Nonautologous Platelets into Peripheral Vein, Percutaneous Approach (ICD-10-PCS; 2018-12-12)
PROC: 30233N1 Transfusion of Nonautologous Red Blood Cells into Peripheral Vein, Percutaneous Approach (ICD-10-PCS; 2018-12-12)
PROC: 30233K1 Transfusion of Nonautologous Frozen Plasma into Peripheral Vein, Percutaneous Approach (ICD-10-PCS; 2018-12-13)
PROC: 30233N1 Transfusion of Nonautologous Red Blood Cells into Peripheral Vein, Percutaneous Approach (ICD-10-PCS; 2018-12-13)
PROC: 0DJD8ZZ Inspection of Lower Intestinal Tract, Via Natural or Artificial Opening Endoscopic (ICD-10-PCS; principal; 2018-12-14 12:00)
DX: K29.71 Gastritis, unspecified, with bleeding (principal); E87.2 Acidosis; D62 Acute posthemorrhagic anemia; D61.818 Other pancytopenia; D69.6 Thrombocytopenia, unspecified; K70.30 Alcoholic cirrhosis of liver without ascites; I10 Essential (primary) hypertension; D64.9 Anemia, unspecified; K64.9 Unspecified hemorrhoids; F10.10 Alcohol abuse, uncomplicated; Y90.0 Blood alcohol level of less than 20 mg/100 ml; Z72.89 Other problems related to lifestyle
CPT/HCPCS: 36430; 71045; 74176; 76705; 80048; 80053; 80307; 82105; 84484; 85014; 85018; 85025; 85610; 85730; 86644; 86704; 86706; 86709; 86803; 86850; 86900; 86901; 86920; 86945; 87340; 93005; C9113; J0696; J2001; J2354; J2405; J2916; J3480; J7040; P9016; P9035; P9059